=== PATIENT | male | born 1975 | race Caucasian/White ===

== ENCOUNTER 2023-10-13 09:41 | Outpatient (AMB) | payer OTHER, SELFPAY ==
--- NOTE | 2023-10-13 09:45 | HO.SPINEOV ---
Intake Visit Reasons: Lumbar Stenosis Intake Note: Mr. Thomas is here today c/o bilateral lower back sciatica pain. [employer] Required: No Allergies clindamycin [CLINDAMYCIN] Allergy (Severe, Verified 11/09/22 13:02) DIARRHEA amoxicillin Allergy (Unknown, Verified 10/13/23 09:46) Rash Penicillins [PENICILLINS] Allergy (Unknown, Verified 10/13/23 09:46) RASH Assessment & Plan Assessment & Plan (1) Lumbago: Code(s): M54.50 - Low back pain, unspecified Category: Medical Plan Dear colleague, Thank you for referring Shayan to our office today. He has a pleasant 48-year-old male who comes in today with a chief complaint of low back pain. He states this has been ongoing for the past 4 years. He is unable to identify an inciting incident for his pain, and states that it started slowly and has became more severe over the years. He states he is able to walk okay, is not falling at all, and only intermittently will get ?flare ups? where he feels like he has a sciatic type pain down to his buttocks area. When describing his pain he points with 1 finger directly to his mid lumbar spine. He states he has been to physical therapy in attempt to mitigate his symptoms, and finished a course roughly 2 months ago with minimal relief. He also has had cortisone injections in his lumbar spine multiple times, which he states have overall not been helpful. Simeon reports that he has been taking Tylenol/ibuprofen [id number], but has not tried any other OTCs. Again, his main complaint is pain in he does not report any numbness, tingling, weakness, or burning. PMH: Seasonal allergies, GERD, depression, anxiety. Social hx: Patient does not smoke, reports no substance use. Medications: Buspirone, ibuprofen, levocetirizine, naproxen, omeprazole paroxetine, quetiapine, zolpidem. Allergies: Clindamycin, amoxicillin, penicillin. Physical exam: Simeon has 5/5 strength in his upper and lower extremities. He has no sensational deficits. His reflexes are 2+ intact. He is able to ambulate well and rises from a seated position without difficulty. (-) Wayne's, (-) clonus, (-) straight leg raise, (-) Karlene's, (-) marcia finger test. Imaging review: MRI of the lumbar spine completed at [facility] shows moderate central canal and foraminal stenosis at L3-4 and L4-5, worse at L4-5. There is notable radio-opaque facet arthropathy on the R at L3-4. X-ray imaging completed in office today does not show any significant listhesis of vertebral bodies. Impression: Simeon is a pleasant 48-year-old male who comes in today with a chief complaint of primarily low back pain without radiation into either of his lower extremities. Additionally, he does not suffer from the classic signs of neurogenic claudication. He does occasionally get ?flare-ups of sciatic pain into his posterior buttocks bilaterally, but is largely concerned with his back pain. He points directly toward the middle of his lumbar spine when describing his back pain. It is possible that some of his pain is originating from the moderate stenosis noted at L3-4, and L4-5, but with his lack of neurogenic claudication I am not sure that Dr. Shen would be willing to pursue a surgical intervention in order to solve his primary symptom which is pain. I will review the imaging with Dr. Shen early next week and call Simeon with a decision. Thank you for allowing us to care for your patient. The total time spent with this visit with this patient was 45 minutes reviewing history, physical exam, X-ray and MRI imaging review, and implementation of treatment plan or further diagnostic testing. Thor Shen MD,PhD [facility] Orders: Orders XR lumbar spine 4V min Today M54.50 - Low back pain, unspecified Coding Level of Care Code New Pt Level 4 (75684) Diagnoses Lumbago M54.50
== END 2023-10-13 11:50 | disposition home or self-care (01) ==
PROVIDERS: PCP Internal Medicine; Referring Provider Physician Assistant; Visit Provider Physician Assistant
DX: M54.50 Low back pain, unspecified (principal)
CPT/HCPCS: 99204

== ENCOUNTER 2023-10-13 09:41 | Outpatient (REF) | payer OTHER, SELFPAY ==
--- NOTE | ~2023-10-13 | XR_ITS ---
EXAMINATION: XR LUMBOSACRAL SPINE WITH OBLIQUES CLINICAL INFORMATION: Low back pain. COMPARISON: None available. TECHNIQUE: 4 views lumbosacral spine upright including flexion and extension views. FINDINGS: Vertebral body height and alignment normal. At L1-L2, there is mild disc space narrowing and endplate osteophytes indicative of [id number] degenerative disc disease. At L2-L3, there are endplate osteophytes without disc space narrowing indicative of mild degenerative disc disease. Remaining disc levels unremarkable. Facets unremarkable. Surrounding bone and soft tissues unremarkable. No abnormal translation with flexion and extension. XR/XR lumbar spine 4V min IMPRESSION: Overall mild spondylosis of the lumbosacral spine.
== END 2023-10-13 09:42 | disposition home or self-care (01) ==
LOC: HO.HOSX 09:41
PROVIDERS: PCP Internal Medicine; Visit Provider Physician Assistant
DX: M54.50 Low back pain, unspecified (principal)
CPT/HCPCS: 72110; 99202